=== PATIENT | female | born 1965 | race Caucasian/White ===

== ENCOUNTER → 2018-10-25 | Outpatient (CLI) | payer OTHER ==
[2018-10-25 17:15] LABS: Basophils # (A) 0.1 k/uL (0-0.2); Basophils % (A) 1 %; Eosinophils # (A) 0.2 k/uL (0-0.7); Eosinophils % (A) 3 %; HCT 43.8 % (34.0-46.0); Lymphocytes # (A) 2.9 k/uL (1.0-4.8); Lymphocytes % (A) 35 %; MCH 27.2 pg (25.0-35.0); MCHC 31.9 g/dL (31.0-37.0); MCV 85.2 fL (80.0-100.0); Mean Platelet Volume 8.6; Monocytes # (A) 0.5 k/uL (0-1.0); Monocytes % (A) 6 %; Neutrophils # (A) 4.3 k/uL (1.3-7.7); Neutrophils % (A) 52 %; Platelet Count 295 k/uL (150-450); RBC 5.14 m/uL (3.80-5.40); RDW 14.2 % (11.5-15.5); WBC 8.4 k/uL (3.8-10.6)
[2018-10-25 17:32] LABS: ALT 25 U/L (9-52); AST 21 U/L (14-36); Albumin 4.1 g/dL (3.5-5.0); Alkaline Phosphatase 88 U/L (38-126); Anion Gap 5 mmol/L; Blood Urea Nitrogen 17 mg/dL (7-17); C Reactive Protein <5.0 mg/L (<10.0); Calcium 9.3 mg/dL (8.4-10.2); Carbon Dioxide 29 mmol/L (22-30); Chloride 105 mmol/L (98-107); Sodium 139 mmol/L (137-145); Total Bilirubin 0.4 mg/dL (0.2-1.3)
[2018-10-25 18:58] LABS: Erythrocyte Sedimentation Rate 13 mm/hr (0-20)
[2018-10-26 01:05] LABS: Vitamin D 25 Hydroxy 20.6 ng/mL (30.0-100.0)
[2018-10-26 02:33] LABS: Hemoglobin A1C 5.6 % (4.0-6.0)
[2018-10-26 14:41] LABS: Parathyroid Hormone Intact 109.2 pg/mL (14.0-72.0)
== END | disposition home or self-care (01) ==
LOC: LABWHC1 16:39
PROVIDERS: ATTEND Internal Medicine Rheumatology
DX: M81.0 Age-related osteoporosis without current pathological fracture (principal); M25.50 Pain in unspecified joint; M06.4 Inflammatory polyarthropathy; Z79.899 Other long term (current) drug therapy
CPT/HCPCS: 36415; 80051; 82040; 82247; 82306; 82310; 82565; 83036; 83970; 84075; 84443; 84450; 84460; 84520; 85025; 85652; 86140

== ENCOUNTER → 2021-08-25 | Outpatient (CLI) | payer OTHER ==
[2021-08-25 13:59] VITALS: BP 118/82; PULSE 83; RESP 18; TEMP 98; BMI 28.1
--- NOTE | 2021-08-25 16:04 | P.HPBAR ---
Bariatric H&P - History & Physicial H&P Date: 08/25/21 History & Physicial: Visit/CC: follow up Patient initial contact: Initial weight: Initial weight in pounds: Height: 5 ft 7 in Initial BMI: Last weight: Current weight: 81.647 kg Current weight in pounds: 180.00 Current BMI: 28.1 [place] body weight (based on NIH guidelines): 61.235 kg Excess body weight loss: The patient is a 55 year-old F who presents for Bariatric Assessment. Patient presents today for sleeve gastrectomy fall. She's not been seen several years. She's had some minimal GERD. She is scheduled for a screening colonoscopy in 2 weeks. Past Medical History Past Medical History: GERD/Reflux, Hypertension, Rheumatoid Arthritis (RA) History of Any Multi-Drug Resistant Organisms: None Reported Past Surgical History: Bariatric Surgery, Orthopedic Surgery, Uterine Ablation Additional Past Surgical History / Comment(s): approximately 2002 - lap band. approximatey 2005 - lap band. Past Anesthesia/Blood Transfusion Reactions: No Reported Reaction Past Psychological History: No Psychological Hx Reported Smoking Status: Never smoker Past Alcohol Use History: Occasional Past Drug Use History: None Reported Surgical - Exam Vital Signs Temp Pulse Resp BP 98 F 83 18 118/82 08/25/21 13:46 08/25/21 13:46 08/25/21 13:46 08/25/21 13:46 - General well developed, well nourished, no distress - Eyes PERRL - ENT normal pinna - Neck no masses - Respiratory normal expansion - Cardiovascular Rhythm: regular - Abdomen Abdomen: soft, non tender Bariatric Assessment & Plan Plan: Patient's GERD is minimal and will be observed. She will have a EGD added at the time for colonoscopy. Bariatric Checklist Checklist: Plan: Checklist: EGD: 1. Hiatal hernia: 2. H. Pylori: HgbA1c: Vitamin D: Smoking: Primary care physician referral: Dr. Arizmendi Psychiatry clearance: Cardiology clearance: Sleep study: Diet journal: VTE risk score: VTE risk level: Rehab needs at discharge:
== END ==
LOC: BARWHC3 13:02
PROVIDERS: ATTEND Surgery
DX: Z09 Encounter for follow-up examination after completed treatment for conditions other than malignant neoplasm (principal); K21.9 Gastro-esophageal reflux disease without esophagitis; I10 Essential (primary) hypertension; M06.9 Rheumatoid arthritis, unspecified; Z98.84 Bariatric surgery status
CPT/HCPCS: 99211

== ENCOUNTER 2021-09-04 07:46 | Day surgery (SDC) | payer OTHER ==
[2021-09-02 10:43] VITALS: BMI 28.1
[~2021-09-04 07:46] MED LIST: LACTATED RINGERS 1,000 ML IV SCH
[2021-09-04 08:15] VITALS: RESP 16; TEMP 96.9
[2021-09-04] MEDS ORDERED: PROPOFOL 10 MG/ML 20 ML VIAL IV ONE (08:46)
--- NOTE | 2021-09-04 08:48 | P.GSHP ---
History of Present Illness H&P Date: 09/04/21 Chief Complaint: GERD, screening colonoscopy This is a 55-year-old female presents today for EGD and colonoscopy. She's had issues with GERD. She will undergo screening colonoscopy. 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 History of Any Multi-Drug Resistant Organisms: None Reported Past Surgical History: Uterine Ablation Additional Past Surgical History / Comment(s): feet surgery, lap band inserted and removed , gastric sleeve. Past Anesthesia/Blood Transfusion Reactions: No Reported Reaction Past Psychological History: No Psychological Hx Reported Additional Psychological History / Comment(s): JARRED FROM COVID Smoking Status: Never smoker Past Alcohol Use History: Rare Past Drug Use History: None Reported - Past Family History Mother Family Medical History: No Reported History Medications and Allergies Home Medications Medication Instructions Recorded Confirmed Type Certolizumab Pegol [Cimzia] 200 mg SQ DIRECTED 08/25/21 09/04/21 History Biotin (Unknown Dose) 1 tab PO DAILY 09/02/21 09/04/21 History HYDROcodone/APAP 10-325MG [[place] 1 tab PO DIRECTED PRN 09/02/21 09/04/21 History 10-325] Losartan-Hctz (Unknown Dose) 1 tab PO DAILY 09/02/21 09/04/21 History Multivit with Calcium,Iron,Min 1 each PO DAILY 09/02/21 09/04/21 History [Women's Multivitamin] Omeprazole 40 mg PO DAILY 09/02/21 09/04/21 History Allergies Allergy/AdvReac Type Severity Reaction Status Date / Time No Known Allergies Allergy Verified 09/04/21 08:18 Surgical - Exam Vital Signs Temp Pulse Resp BP Pulse Ox 96.9 F L 77 16 127/80 98 09/04/21 08:14 09/04/21 08:14 09/04/21 08:14 09/04/21 08:14 09/04/21 08:14 - General well developed, well nourished, no distress - Eyes PERRL - ENT normal pinna - Neck no masses - Respiratory normal expansion - Cardiovascular Rhythm: regular - Abdomen Abdomen: soft, non tender Assessment and Plan Assessment: GERD. We'll perform EGD. We'll also perform screening colonoscopy.
--- NOTE | 2021-09-04 09:09 | P.OP ---
Date of Procedure: 09/04/21 Preoperative Diagnosis: GERD Screening colonoscopy Postoperative Diagnosis: Antral gastritis Mild esophagitis Small hiatal hernia Internal and external hemorrhoids Mild diverticulosis Procedure(s) Performed: EGD Colonoscopy Anesthesia: MAC Surgeon: Crow Patrick Pathology: other (Antrum, esophagus) Condition: stable Disposition: PACU Description of Procedure: The patient's placed on the endoscopy table in the lateral position. He received IV sedation. The gastro-/oropharynx passed in the esophagus and stomach. Scope was then placed through the pylorus. The first and second portion of the duodenum appeared normal. Scope summer back the antrum this. Mildly inflamed. A biopsies performed. Scope brought back. Patient appears gastric sleeve. There was a small hiatal hernia. The GE junction was at 38 cm. The distal esophagus appeared mildly inflamed. A biopsies performed. The p roximal esophagus appeared normal. Scope withdrawn for patient. Next digital rectal exam was performed which revealed internal/external hemorrhoids. Flexible colonoscope was then placed patient anus and passed throughout the entire colon. The ileocecal valve was visualized. The cecum, ascending and transverse colon appeared normal. The descending and sigmoid colon had a few scattered diverticula. The scope was then brought back the rectum and this appeared normal. Scope withdrawn for patient.
[2021-09-04 09:31] VITALS: BP 125/88; PULSE 79
== END 2021-09-04 10:01 | disposition home or self-care (01) ==
LOC: ORWHC2ENDO 07:46
PROVIDERS: ATTEND Surgery
DX: Z12.11 Encounter for screening for malignant neoplasm of colon (principal); K57.30 Diverticulosis of large intestine without perforation or abscess without bleeding; K20.0 Eosinophilic esophagitis; K29.70 Gastritis, unspecified, without bleeding; K44.9 Diaphragmatic hernia without obstruction or gangrene; K64.4 Residual hemorrhoidal skin tags; K64.8 Other hemorrhoids; I10 Essential (primary) hypertension; M06.9 Rheumatoid arthritis, unspecified; G51.0 Bell's palsy; Z86.16 Personal history of COVID-19; Z98.890 Other specified postprocedural states; Z98.84 Bariatric surgery status; Z79.899 Other long term (current) drug therapy
CPT/HCPCS: 88305; 43239; J2704; G0121

== ENCOUNTER → 2022-12-14 | Outpatient (CLI) | payer OTHER ==
[2022-12-15 02:03] LABS: Anion Gap 14.7 mmol/L; Carbon Dioxide 25.3 mmol/L; Potassium 3.9 mmol/L
[2022-12-15 02:22] LABS: HCT 42.8 %; HGB 12.8 d/dL; MCH 26.5 pg; MCHC 29.9 d/dL; MCV 88.6 FL; Mean Platelet Volume 12.3 FL; NRBC Per 100 WBC 0 X 10*3/uL; Platelet Count 328 X 10*3/uL; RBC 4.83 X 10*6/uL; RDW 14.9 %; WBC 9.36 X 10*3/uL
[2022-12-15 02:23] LABS: Basophils # (A) 0.12 X 10*3/uL; Basophils % (A) 1.3 %; Eosinophils # (A) 0.23 X 10*3/uL; Eosinophils % (A) 2.5 %; Lymphocytes % (A) 19.2 %; Monocytes # (A) 0.64 X 10*3/uL; Monocytes % (A) 6.8 %; Neutrophils # (A) 6.55 X 10*3/uL
== END | disposition home or self-care (01) ==
LOC: LABPAT 13:38
PROVIDERS: ATTEND Orthopaedic Surgery
DX: Z01.812 Encounter for preprocedural laboratory examination (principal); M23.91 Unspecified internal derangement of right knee
CPT/HCPCS: 80051; 85025; 93005

== ENCOUNTER 2022-12-17 10:21 | Day surgery (SDC) | payer OTHER ==
--- NOTE | 2022-12-16 23:29 | HP ---
HISTORY AND PHYSICAL DATE OF SCHEDULED SURGERY: 12/17/2022. HISTORY OF PRESENT ILLNESS: Theresa Guzman is a 57-year-old patient seen with progressive right knee pain. We discussed options for treatment. She elected to proceed with right knee arthroscopy. Consent regarding procedure was obtained. PAST MEDICAL HISTORY: Hypertension. PAST SURGICAL HISTORY: Noncontributory. DAILY MEDICATIONS: Antihypertensive. ALLERGIES: None. SOCIAL HISTORY: She denies tobacco use. PHYSICAL EVALUATION OF RIGHT KNEE: Range of motion is -3/4 at 115 degrees. Moderate to severe effusion. Tenderness medial joint line. Positive medial Marilee's. Ligaments stable. Hip rotation without pain. Distal neurovascular exam is intact. RADIOGRAPHS: Right knee radiographs revealed moderate medial compartment osteoarthritis. MRI right knee revealed osteochondral defect, medial tibial plateau, and an effusion. IMPRESSION: 1. Internal derangement of right knee with osteochondral defect. 2. Hypertension. PLAN: Right knee arthroscopy with chondroplasty, probable microfracture and debridement. MMODL / IJN: [id number] /
[~2022-12-17 10:21] MED LIST changes: +DEXAMETHASONE SOD PHOSPHATE 4 MG/ML 1 ML VIAL IV ONE; +HYDROmorphone 0.5 MG/0.5 ML SYRINGE IVP PRN; +LIDOCAINE 1% (10MG/ML) FOR IV START INTRADERMA PRN; +ONDANSETRON 4 MG/2 ML VIAL IVP ONE; +droPERidol 5 MG/2 ML VIAL IVP ONE
[2022-12-17] MEDS ORDERED: LACTATED RINGERS 1,000 ML IV ONE (10:45)
[2022-12-17] MEDS ORDERED: BUPIVACAINE (PF) 0.25% 30 ML VIAL INTRAARTIC ONE ×2 (11:55→12:28)
[2022-12-17] MEDS ORDERED: PROPOFOL 10 MG/ML 20 ML VIAL IV ONE (11:55)
[2022-12-17] MEDS ORDERED: KETOROLAC 15 MG/ML 1 ML VIAL ONE (11:55)
[2022-12-17] MEDS ORDERED: fentaNYL (PF) 50 MCG/ML 2 ML AMP ONE (11:55)
[2022-12-17] MEDS ORDERED: LIDOCAINE 2% INJ 20 MG/ML (2 ML VIAL) ONE (11:55)
--- NOTE | 2022-12-17 12:42 | P.OP ---
Date of Procedure: 12/17/22 Preoperative Diagnosis: Internal derangement right knee Postoperative Diagnosis: 1. Tear medial and lateral meniscus right knee 2. Grade 4 chondromalacia medial femoral condyle right knee 3. Reactive synovitis medial, lateral and suprapatellar compartments right knee 4. Grade 2 chondromalacia patella right knee Procedure(s) Performed: 1. Arthroscopic partial medial and lateral meniscectomy right knee 2. Arthroscopic microfracture medial femoral condyle right knee 3. Arthroscopic partial synovectomy medial, lateral and suprapatellar compartments right knee 4. Arthroscopic chondroplasty patella right knee Anesthesia: JUAN MANUELA, local Surgeon: Shay Higuera Estimated Blood Loss (ml): 8 Pathology: none sent Condition: stable Disposition: PACU Indications for Procedure: 57-year-old patient who was seen with progressive right knee pain. After treatment options were discussed, she elected to proceed with arthroscopy. Operative Findings: see description of procedure Description of Procedure: Patient was taken to the operative suite. Patient underwent a general anesthetic by the department of anesthesia. Patient was given preoperative antibiotics. The right lower extremity was placed in a well-padded arthroscopic leg alvarez. The right leg was prepped and draped in the normal sterile orthopedic fashion. A lateral parapatellar and suprapatellar incision was made. Trochars were inserted. Arthroscopy was initiated. Suprapatellar pouch revealed diffuse thick reactive synovitis. The patellofemoral joint appeared to articulate congruently. There was grade 2 chondromalacia of the patella with some small osteochondral flap tears present. The scope was guided into the medial gutter. No loose bodies or plica were identified. The scope was then guided into the medial compartment. A medial parapatellar incision was made. Trocar inserted followed by probe. There was a tear involving the root area of the posterior horn of the medial meniscus. There were grade 3/4 chondromalacia changes diffusely about the medial femoral condyle with some small osteochondral flap tear. There was thick reactive synovitis anteriorly. I performed a partial medial meniscectomy getting down to stable meniscal tissue. I performed a chondroplasty of the medial femoral condyle getting down to stable osteochondral tissue. I performed a partial synovectomy decompressing the thick reactive synovitis anteriorly. I did note a small area of exposed bone medial femoral condyle measuring approximately 1 cm along the lateral weightbearing surface. I introduced a microfracture awl and I performed a microfracture to that area penetrating the bone with resultant bleeding at the microfracture site. The residual meniscus was probed and was found to be stable. The residual osteochondral surface was stable. There was good decompression of the synovitis. Scope and probe were then guided into the intercondylar notch. Cruciates were identified, probed and found to be stable. The scope and probe were then guided into lateral compartment. There was a radial tear involving the midbody lateral meniscus. There was no significant chondromalacia lateral compartment. There was some thick reactive synovitis anteriorly. I performed a partial lateral meniscectomy. I performed a partial synovectomy. The residual meniscus was stable. There was good decompression of the synovitis. The scope was in guided back into the suprapatellar compartment. I introduced a motorized shaver into the suprapatellar compartment. I debrided some piecemeal fragments of meniscus I encountered. I performed a chondroplasty of the patella getting down to stable osteochondral tissue. I performed a partial synovectomy. Shaver was removed. There was good decompression of the synovitis. I took one more look around the entire knee, no residual debris. Instruments were now removed from the joint. The joint was infiltrated with .25% Marcaine. Steri-Strips were applied to the portal sites. Sterile dressings were applied. The patient was placed into a STEVE hose. No tourniquet was utilized. The patient was awakened, transferred to a bed and taken to recovery stable satisfactory condition.
[2022-12-17 12:47] VITALS: TEMP 98
[2022-12-17 13:34] VITALS: RESP 16
[2022-12-17 13:47] VITALS: BP 155/97; PULSE 70
== END 2022-12-17 14:00 | disposition home or self-care (01) ==
LOC: OR 10:21
PROVIDERS: ATTEND Orthopaedic Surgery
DX: S83.281A Other tear of lateral meniscus, current injury, right knee, initial encounter (principal); S83.241A Other tear of medial meniscus, current injury, right knee, initial encounter; M65.861 Other synovitis and tenosynovitis, right lower leg; M22.41 Chondromalacia patellae, right knee; I10 Essential (primary) hypertension; M17.11 Unilateral primary osteoarthritis, right knee; X58.XXXA Exposure to other specified factors, initial encounter
CPT/HCPCS: 29880; 29879; J1100; J0690; J2405; J3010; J1885; J2704; J1170; J2001